=== PATIENT | male | born 1995 | race Hispanic/Latino ===

== ENCOUNTER 2022-05-01 11:43 | Emergency (ER) | payer SELFPAY ==
[2022-05-01] MEDS ORDERED: Acetaminophen 500 MG TAB ONE (12:03)
== END 2022-05-01 12:10 | disposition home or self-care (01) ==
LOC: ERS 11:43
DX: S93.401A Sprain of unspecified ligament of right ankle, initial encounter (principal); X50.1XXA Overexertion from prolonged static or awkward postures, initial encounter